=== PATIENT | male | born 1970 | race Hispanic/Latino ===

== ENCOUNTER 2018-11-06 17:32 | Emergency (ER) | payer OTHER ==
[2018-11-06] MEDS ORDERED: Sodium Chloride 0.9% 1,000 ML IV ONE (18:06)
[2018-11-06 18:22] LABS: BASO % 0.3 % (0.0-2.0); EOS % 0.2 % (0.0-4.0); HEMOGLOBIN 15.9 g/dL (12.0-18.0); LYMPH # 0.4 K/uL (1.0-4.3); LYMPH % 3.9 % (20.0-40.0); MEAN CELL VOLUME 84.7 fl (80.0-94.0); MEAN CORPUSCULAR HEMOGLOBIN 27.9 pg (27.0-31.0); MEAN PLATELET VOLUME 8.8 fl (7.2-11.7); MONO # 0.6 K/uL (0.0-0.8); MONO % 6.1 % (0.0-10.0); NEUT # 9.5 K/uL (1.8-7.0); NEUT % 89.5 % (50.0-75.0); PLATELET COUNT 258 K/uL (130-400); RBC 5.71 Mil/uL (4.40-5.90); RED CELL DISTRIBUTION WIDTH 14.7 % (11.5-14.5); WHITE BLOOD COUNT 10.6 K/uL (4.8-10.8)
[2018-11-06 18:29] VITALS: O2SAT 97
[2018-11-06 18:32] LABS: GFR NON-AFRICAN AMERICAN > 60
[2018-11-06 19:02] LABS: ALB/GLOB RATIO 1.2 (1.0-2.1); ALBUMIN 4.3 g/dL (3.5-5.0); ALT/SGPT 86 U/L (21-72); AST/SGOT 43 U/L (17-59); BLOOD UREA NITROGEN 21 mg/dl (9-20); CALCIUM 9.2 mg/dL (8.4-10.2); LIPASE 36 U/L (23-300)
--- NOTE | 2018-11-06 19:16 | ED PDOC ---
HPI: Abdomen Time Seen by Provider: 11/06/18 17:58 Chief Complaint (Nursing): GI Problem Chief Complaint (Provider): Vomiting without Abdominal Pain History Per: Patient History/Exam Limitations: no limitations Onset/Duration Of Symptoms: Hrs (several) Outside of [place] travel?: No Current Symptoms Are (Timing): Better Context: Food Severity: Mild (Pt presents to the ED complaining of several hours of resolved vomiting without tenderness or pain to the abdomen. Pt indicates that the vomitus began about an hour after consumming a stick of salami that no one else consummed. Pt denies fever, diarrhea and ill contacts) Past Medical History Reviewed: Historical Data, Nursing Documentation, Vital Signs Vital Signs: Last Vital Signs Temp 97.6 F 11/06/18 17:41 Pulse 84 11/06/18 18:29 Resp 16 11/06/18 17:41 BP 126/83 11/06/18 17:41 Pulse Ox 97 11/06/18 18:29 - Surgical History Surgical History: Endoscopy (Colonoscopy) - Family History Family History: States: Unknown Family Hx - Allergies Allergies/Adverse Reactions: Allergies Allergy/AdvReac Type Severity Reaction Status Date / Time No Known Allergies Allergy Verified 11/06/18 17:40 Review of Systems ROS Statement: Except As Marked, All Systems Reviewed And Found Negative Gastrointestinal: Positive for: Nausea, Vomiting Physical Exam - Reviewed Nursing Documentation Reviewed: Yes Vital Signs Reviewed: Yes - Physical Exam Appears: Positive for: Well, Non-toxic, No Acute Distress. Negative for: Uncomfortable Head Exam: Positive for: ATRAUMATIC, NORMAL INSPECTION Skin: Positive for: Normal Color, Warm, Dry. Negative for: Diaphoresis, Pallor, Rash Eye Exam: Positive for: Normal appearance. Negative for: Nystagmus, Periorbital swelling, Periorbital tenderness ENT: Positive for: Normal ENT Inspection Neck: Positive for: Normal, Painless ROM, Supple. Negative for: Decreased ROM Cardiovascular/Chest: Positive for: Regular Rate, Rhythm Respiratory: Positive for: Normal Breath Sounds Gastrointestinal/Abdominal: Positive for: Normal Exam, Bowel Sounds (active in all four quadrants), Soft. Negative for: Tenderness, Distended, Guarding, Rebound, Asicites - Laboratory Results Result Diagrams: 11/06/18 18:18 11/06/18 18:18 Lab Results: Total Bilirubin 0.6 mg/dl (0.2-1.3) 11/06/18 18:18 AST 43 U/L (17-59) 11/06/18 18:18 ALT 86 U/L (21-72) H 11/06/18 18:18 Alkaline Phosphatase 68 U/L (38-126) 11/06/18 18:18 Total Protein 8.0 G/DL (6.3-8.2) 11/06/18 18:18 Albumin 4.3 g/dL (3.5-5.0) 11/06/18 18:18 Albumin/Globulin Ratio 1.2 (1.0-2.1) 11/06/18 18:18 Lipase 36 U/L (23-300) 11/06/18 18:18 - ECG O2 Sat by Pulse Oximetry: 97 Medical Decision Making Medical Decision Making: r/o infection zofran 9though sx resolved after presentation) fluids CBC CMP Lipase (all showing results that are not clinically significant) Disposition - Clinical Impression Clinical Impression: Gastroenteritis - Patient ED Disposition Is Patient to be Admitted: No Doctor Will See Patient In The: Office Counseled Patient/Family Regarding: Studies Performed, Diagnosis, Need For Followup - Disposition Referrals: [facility] [Outside] Disposition: Routine/Home Disposition Time: 20:00 Condition: STABLE Instructions: Gastritis (DC) Forms: [employer] (Ivorian)
[2018-11-06 19:33] LABS: URINE BACTERIA RARE (<OCC); URINE BILIRUBIN NEGATIVE (NEGATIVE); URINE BLOOD NEGATIVE (NEGATIVE); URINE CLARITY CLOUDY (Clear); URINE COLOR YELLOW (YELLOW); URINE GLUCOSE (UA) NEG (NEGATIVE); URINE LEUKOCYTE ESTERASE NEG Leu/uL (Negative); URINE PROTEIN 100 mg/dL (NEGATIVE); URINE UROBILINOGEN 0.2-1.0 mg/dL (0.2-1.0)
[2018-11-06 20:19] VITALS: BP 114/78; PULSE 88; RESP 18; TEMP 99.2
[2018-11-06 20:21] LABS: LYMPHOCYTE 4 % (20-50); MONOCYTE 5 % (0-10); NEUTROPHIL 91 % (42-75); PLATELET ESTIMATE NORMAL (NORMAL); TOTAL CELLS COUNTED 100
== END 2018-11-06 20:20 | disposition home or self-care (01) ==
LOC: H.ER 17:32
DX: K52.9 Noninfective gastroenteritis and colitis, unspecified (principal)
CPT/HCPCS: 80053; 81003; 83690; 85025; 87804; 96361; 96374; 99284; J2405; J7030